=== PATIENT | female | born 1960 | race Caucasian/White ===

== ENCOUNTER → 2018-06-27 | Outpatient (CLI) | payer BC ==
--- NOTE | 2018-06-28 15:02 | PCVCIMAG ---
APPROVED REPORT Study performed: 06/27/2018 10:18:10 Exam: Stress Echocardiogram Indication: atypical chest pain, dyspnea, palpitations Patient Location: Echo lab Stress Nurse: Mery Smith RN Status: routine Ht: 5 ft 4 in HR: 66 bpm BP: 114/74 mmHg Rhythm: NSR Procedure The patient underwent an Exercise Stress Test using the Vasile Protocol. Blood pressure, heart rate, and EKG were monitored. An Echocardiogram was performed by a and p technician in four stages in quad fashion. At peak stress, four selected images were obtained and placed side by side with resting images for comparison. Stress Test Details Stress Test: Exercise stress testing was performed using a Vasile protocol. HR Resting HR: 66 bpmMax Heart Rate (APMHR): 163 bpm Max HR Achieved: 169 bpmTarget HR (85% APMHR): 138 bpm % of APMHR: 103 Recovery HR: 85 bpm HR response to stress: Normal HR response to stress BP Resting BP: 114/74 mmHg Max BP: 162/78 mmHg Recovery BP: 140/68 mmHg BP response to stress: Normal blood pressure response to stress. ECG Resting ECG: Sinus Rhythm Stress ECG: Sinus Rhythm ST Change: Normal Arrhythmia: None Recovery ECG: Sinus Rhythm Recovery ST Change: Normal Recovery Arrhythmia: None Clinical Reason for Termination: Maximal effort Exercise duration: 10 min 36 sec Highest Stage Achieved: Stage 4: 4.2 mph at 16% grade. Exercise capacity: 13.7 METs Overall Exercise Capacity for Age: Normal Scale: Active Angina Score: None Stress ECG Conclusion 1. Subjectively negative for ischemia 2. Electrocardiographically negative for ischemia 3. Adequate functional capacity Pre-Stress Echo The resting Echocardiogram showed normal left ventricular contractility with an estimated Ejection Fraction of about >55%. Normal wall motion in all segments on baseline images. Post-Stress Echo The stress Echocardiogram showed normal left ventricular contractility with an estimated Ejection Fraction of about 65%. Normal augmentation of wall motion in all segments on post stress images. Clinical No clinical or ECG evidence for ischemia. Conclusion Clinical Response: Non-ischemic Exercise Capacity: Average Stress ECG Response: Non-ischemic Stress Echo Images: Non-ischemic The left ventricle is normal in size and wall thickness in both the rest and stress images. 1. Low risk study Other Information Study Quality: Adequate <Conclusion> The left ventricle is normal in size and wall thickness in both the rest and stress images. 1. Low risk study
== END | disposition home or self-care (01) ==
LOC: PCVCIMAG 10:44
PROVIDERS: ATTEND Internal Medicine
DX: R00.2 Palpitations (principal); R07.89 Other chest pain; R06.09 Other forms of dyspnea
CPT/HCPCS: 93325; 93351